=== PATIENT | female | born 1980 | race African-American/Black ===

== ENCOUNTER 2019-04-25 22:18 | Inpatient (IN) | payer OTHER ==
[~2019-04-25] VITALS: Ht 165.1 cm; Wt 59.4 kg
--- NOTE | ~2019-04-25 | O ---
[facility] [place] [address] OPERATIVE REPORT Name: DEEPAK SAENZ Room #: 439-P [facility] IN M.R.#: [id number] Admission: 04/26/19 Attend Phys: Stephania Kelly MD Discharge: Date of : 84 Report #: [id number] THIS REPORT FOR: //name// CC: Stephania Kelly [facility] physician/PCP DATE OF SERVICE: 04/26/2019 PREOPERATIVE DIAGNOSIS: Right tibial plateau fracture. POSTOPERATIVE DIAGNOSIS: Right tibial plateau fracture. PROCEDURE: Right tibial plateau open reduction and internal fixation. SURGEON: Dr. Stephon Larios. OPERATING ROOM TECH: Kimberly Rocha. ANESTHESIA: General. ESTIMATED BLOOD LOSS: Minimal. DRAINS: No drains. TOURNIQUET TIME: One hour. DESCRIPTION OF PROCEDURE: The patient brought to the operating room where she was placed under general anesthesia. Once under adequate general anesthesia, her right lower extremity was prepped and draped in sterile manner. The extremity was elevated, exsanguinated, tourniquet placed 300 mmHg. A mid lateral incision was then made over the knee joint laterally extending anterior distally over the area of the lateral plateau fracture. The patient did have a medial plateau fracture as well, however, dissection was carried down to the fascia overlying the anterior compartment of the leg, which was incised and the entire lateral border of the tibia was then completely exposed, Once exposed, dissection was carried down to the fracture site, any hematoma was evacuated from the fracture site. This was a highly comminuted fracture laterally. Subsequent reduction was then achieved of the fracture utilizing a Joker elevator and fluoroscopy to verify alignment. There was a void in the bone proximally once reduction was able to be achieved and this was then filled with cancellous bone chips. Once the joint level was able to be reduced, a large bone reduction tenaculum was placed across the fracture to reduce the 2 large fragments, which were the lateral and medial tibial plateau fractures into one large piece. These were then fixed utilizing a Synthes proximal tibial plate with 3 locking subchondral screws proximally and then fixing the 2 condyles to the bone with 4 screws distally in cortical mode across the tibial cortex. A [address] [address] OPERATIVE REPORT Name: DEEPAK SAENZ Room #: 439-P [facility] IN M.R.#: [id number] Admission: 04/26/19 Attend Phys: Stephania Kelly MD Discharge: Date of : 84 Report #: [id number] separate subchondral screw was placed from lateral as well in locking mode. Excellent fixation and alignment was achieved as verified under fluoroscopy. Once complete, the wound was irrigated copiously and closed with 0 Vicryl in the fascial layer, 2-0 Vicryl in subcutaneous tissues and cathy for the skin. The wounds were dressed with Xeroform, 4 x 4s and sterile soft compressive dressing was placed. Tourniquet was let down approximately one hour. Toes were pink and warm with good capillary refill. There were no complications from the procedure. The patient tolerated the procedure well and was taken to recovery room without incident. By: [id number] Stephon Larios MD /nt
[2019-04-25 22:23] VITALS: BP 102/45
[2019-04-26] VITALS (10 sets, daily range): BP systolic 106–144; BP diastolic 58–96
[2019-04-26 00:37] LABS: ABSOLUTE NEUTROPHILS 6.5 thou/uL (1.4-8.2); BASOPHILS 1.1 % (0.0-2.0); EOSINOPHILS 0.7 % (0.0-3.0); HEMATOCRIT 37.4 % (37.0-47.0); HEMOGLOBIN 12.3 gm/dL (12.0-15.0); LYMPHOCYTES 13.2 % (24.0-44.0); MCH 30.6 pg (26.0-34.0); MCV 92.6 fL (80.0-100.0); MONOCYTES 7.5 % (1.0-8.0); PLATELET COUNT 251 thou/uL (150-400); POLYS 77.5 % (36.0-66.0); RBC 4.04 mil/uL (4.20-5.00); RDW 14.3 % (10.5-14.5); WBC 8.4 thou/uL (4.0-11.0)
[2019-04-26 00:45] LABS: CALCIUM 8.6 mg/dL (8.5-10.1); POTASSIUM 3.8 mmol/L (3.5-5.1)
--- NOTE | 2019-04-26 04:55 | NUR ---
PT ARRIVED AT THE UNIT @0200 PT ASSESSED RT TIBIA FX AND IN PAIN. ADM CHARTED AND DOCUMENTED. FAMILY AT BEDSIDE AND PT NPO ON ARRIVAL FOR SX TOMORROW. FOLLEY CATHETER INSERTERED PER DOCTORS ORDER. MORPHINE GIVENX1 THIS MORNING. FALL PREC IN PLACE AND CALL LIGHT IN REACH WILL CONT WITH POC TILL EOS.
[2019-04-26 06:25] LABS: INR 1.1; PROTIME 11.1 Seconds (9.3-11.4)
--- NOTE | 2019-04-26 08:55 | HC ---
[facility] [place] [address] CONSULTATION Name: DEEPAK SAENZ Room #: 439-[facility] IN M.R.#: [id number] Admission: 04/26/19 Attend Phys: Stephania Kelly MD Discharge: Date of : 84 Report #: [id number] THIS REPORT FOR: //name// CC: Stephania Kelly [facility] physician/PCP DATE OF SERVICE: 04/26/2019 CHIEF COMPLAINT: Right knee pain. HISTORY OF PRESENT ILLNESS: This is a 38-year-old patient who was getting out of her bed when her foot slid, having an immediate knee pain at that time. She was evaluated in the Emergency Room and determined to have a proximal tibia fracture for which Orthopedics was consulted. REVIEW OF SYSTEMS: As above. PAST MEDICAL HISTORY: Negative. ALLERGIES: None. SOCIAL HISTORY: Significant for tobacco and alcohol use. PHYSICAL EXAMINATION: VITAL SIGNS: Notes a temperature of 36.7, pulse 96, respiratory rate 16, and blood pressure is 102/45. GENERAL: Awake, alert, in no apparent distress. EXTREMITIES: Examination of the right lower extremity notes it is in a posterior splint. She is neurovascularly intact distally. She has good capillary refill. She has moderate edema. LABORATORY STUDIES: Negative. X-rays and CT scan note a comminuted tibial plateau fracture with a proximal fibular fracture as well. IMPRESSION: Right tibial plateau fracture, comminuted. PLAN: Options were discussed with the patient. At this point, she is a candidate for an open reduction and internal fixation of her right tibial plateau fracture. We will proceed in the near future. <ELECTRONICALLY SIGNED> By: Stephon Larios MD 04/26/19 [id number] Stephon Larios MD /nt
--- NOTE | 2019-04-26 16:20 | NUR ---
Assumed care of pt at 0700. Pt had surgery this am on right tibia. Back from surgery. Prn pain meds administered per pt request. IVF infusing. Non-weight bearing on right lower extremity. Family at bedside. Call light within reach. Fall precautions in place. Will continue to monitor.
[2019-04-27 00:05] VITALS: BP 115/63
--- NOTE | 2019-04-27 02:13 | NUR ---
PT ASSESSED AT START OF SHIFT A&OX4 FAMILY AT BEDSIDE. PAIN MED GIVEN FOR CONTROL. KNEE IMMOBILIZIER ON RT LEG. IV INTACT AND FLUIDS INFUSING. FALL PREC IN PLACE AND CALL LIGHT IN REACH WILL CONT WITH POC TILL EOS.
[2019-04-27 04:40] VITALS: BP 124/57
[2019-04-27 07:12] LABS: HEMATOCRIT 35.1 % (37.0-47.0); HEMOGLOBIN 11.3 gm/dL (12.0-15.0)
[2019-04-27 07:17] LABS: POTASSIUM 3.6 mmol/L (3.5-5.1)
[2019-04-27 08:50] VITALS: BP 130/68
[2019-04-27] MEDS ORDERED: ASA5UEC PO (10:47)
[2019-04-27] MEDS ORDERED: OXYCODONE-APAP1 TAB PO (10:47)
--- NOTE | 2019-04-27 14:04 | NUR ---
ASSUMED PATIENT CARE AT 0700. PATIENT A&OX4 AND RESTING IN BED. C/O OF PAIN, PRN PAIN MEDS GIVEN. IV FLUID THERAPY COMPLETE. LEG IMMOBILIZER IN PLACE ON RIGHT LEG. PIMENTEL REMOVED. PT WORKED WITH PT TWICE TODAY IN PREP FOR D/C. FALL PRECAUTIONS IN PLACE. CALL LIGHT IN REACH.
[2019-04-27 14:45] VITALS: BP 130/68
[2019-04-27 14:49] VITALS: BP 130/68
[2019-04-27 16:38] VITALS: BP 130/68
--- NOTE | 2019-04-27 17:23 | NUR ---
ASSESSMENT-PT LIVES AT HOME WITH HER AND THEIR 11 YEAR OLD SON. PRIOR TO ADMISSION PT WAS INDEPENDENT OF ADLS AND AMBULATION. PT OFFERED OPT[employer] FOR A ROLLER WALKER AND SHE CHOSE [employer]. ASKED [employer] TO DELIVER ROLLER FOR PT TO [place] THIS AFTERNOON. THIS WAS PROVIDED TO HER. PT HAS ORDERS FOR HH SERVICES. OFFERED OPTIONS AND INITIALLY REFERRAL FAXED TO [facility] BUT IT WOULD BE AT LEAST 72 HRS BEFFORE SHE COULD BE SEEN. S/W [facility] AND FAXED REFERRAL TO THEM AND S/W INTAKE THERE AND THEY S/W [place] & THEY WILL SEE FABI.
== END 2019-04-27 16:00 | disposition home health service (06) | DRG 494 ==
LOC: ER 22:18 → 4S 04-26 00:57 → EROBS 04-26 00:57 → 4S 04-26 01:46 → ENTRNSPT 04-27 15:08 → EDTRNSPTSTS 04-27 15:10 → 4S 04-27 16:00
PROVIDERS: Emergency Medicine; Nurse Practitioner Family; Orthopaedic Surgery Foot and Ankle Surgery; ADMIT Hospitalist
PROC: 0QSG04Z Reposition Right Tibia with Internal Fixation Device, Open Approach (ICD-10-PCS; principal; 2019-04-26)
DX: S82.141A Displaced bicondylar fracture of right tibia, initial encounter for closed fracture (principal); S82.401A Unspecified fracture of shaft of right fibula, initial encounter for closed fracture; F17.210 Nicotine dependence, cigarettes, uncomplicated; W01.0XXA Fall on same level from slipping, tripping and stumbling without subsequent striking against object, initial encounter; Y93.89 Activity, other specified; Y99.8 Other external cause status; Y92.013 Bedroom of single-family (private) house as the place of occurrence of the external cause; Z79.891 Long term (current) use of opiate analgesic; Z79.899 Other long term (current) drug therapy
CPT/HCPCS: 10195; 50010; 50101; 50341; 50386; 51412; 51439; 51583; 51816; 56524; 56526; 56667; 57091; 57180; 62110; 62900; 70005